=== PATIENT | male | born 1960 | race Caucasian/White ===

== ENCOUNTER 2016-10-27 10:10 | Inpatient (IN) ==
[2016-10-27] MEDS ORDERED: ZOFRAN ODT PO ONE (11:05)
--- NOTE | 2016-10-27 11:09 | PROVIDER DOCUMENTATION ---
HPI-General Adult - General Chief Complaint: Possible Sepsis-D Stated Complaint: SWELLING,WEAKNESS Time Seen by Provider: 10/27/16 10:53 Source: patient Allergies/Adverse Reactions: Patient Allergies Allergy/AdvReac Type Severity Reaction Status Date / Time No Known Allergies Allergy Verified 10/17/16 17:29 Home Medications: Home Medication List Medication Instructions Recorded Confirmed Last Taken Type Bupropion S.r. [Wellbutrin Sr] 150 mg PO BID #60 tablet 01/17/13 01/19/13 Unknown Rx Meloxicam [Mobic] 15 mg PO DAILY #60 tablet 01/17/13 01/19/13 Unknown Rx Amiodarone [Cordarone] 400 mg PO BID #0 tablet 01/22/13 Unknown Rx Amiodarone [Cordarone] 400 mg PO DAILY #0 tablet 01/22/13 Unknown Rx Amiodarone [Cordarone] 400 mg PO TID #0 tablet 01/22/13 Unknown Rx Apixaban [Eliquis] 5 mg PO BID #0 tablet 01/22/13 Unknown Rx Aspirin 325 mg PO DAILY #0 tablet 01/22/13 Unknown Rx Digoxin [Lanoxin] 250 microgm PO DAILY #0 tablet 01/22/13 Unknown Rx Metoprolol [Lopressor] 50 mg PO Q12H #0 tablet 01/22/13 Unknown Rx Oxycodone HCl/Acetaminophen 1 - 2 each PO Q4H PRN PRN #40 10/23/16 Unknown Rx [Percocet 5-325 mg Tablet] tablet - History of Present Illness -Gen Adult Nature of Presenting Problems: Pt is a 55 y/o WM c PMHx of MVP with apparently a bovine valve, HTN, HLD and depression, who was recently hospitalized for necrotic wound s/p debriedment and washout by Dr. Dietrich with wound vac in place, and placed on Ancef by Dr. Stack, just discharged on 10/23/16. He is here because the home health nurse discovered petechiae over the past 2 days, and patient has had increased nose bleeds. Denies easy bruising, but states he has been laying in bed with fatigue and nausea the past 2 days. Denies headaches or neck stiffness. Denies fevers, reports chills. Denies swelling in the joints. No prior history of coagulopathies to his knowledge. He has been getting Heparin flushes with the abx, he is no longer taking his Eliquis, and is on Aspirin 325 mg for DVT prophylaxis. Review of Systems - Adult - REVIEW OF SYSTEMS - ADULT Constitutional: reports: see HPI, chills, fatique. denies: fever Eyes: reports: no symptoms reported. denies: decreased vision, blurred vision, double vision, eye pain Ears, Nose, Mouth & Throat: reports: no symptoms reported. denies: ear pain, nose pain, throat pain Cardiovascular: reports: no symptoms reported. denies: chest pain, irregular heart rate, palpitations Respiratory: reports: no symptoms reported. denies: cough, shortness of breath , wheezing Gastrointestinal: reports: see HPI, nausea. denies: abdominal pain, diarrhea, vomiting Genitourinary: reports: no symptoms reported. denies: dysuria, discharge, frequency Musculoskeletal: reports: see HPI, muscle aches, other (selling). denies: bone pain, back pain Integumentary: reports: see HPI (petechia), rash Neurological: reports: no symptoms reported. denies: ataxia, dizziness/vertigo , headache/migraines Psychiatric: reports: no symptoms reported Endocrine: reports: no symptoms reported Hematologic/Lymphatic: reports: see HPI Allergic/Immunologic: reports: no symptoms reported All Other Systems: Reviewed and Negative Past History - Adult - PAST MEDICAL HISTORY-ADULT Review of Records: reports: Old Records Reviewed, Nursing Assessment Review, Medications Reviewed Major Childhood Illnesses: reports: denies history Cardiovascular: reports: HTN, heart valve problem Respiratory: reports: denies history Gastrointestinal: reports: denies history Genitourinary: reports: denies history Musculoskeletal: reports: denies history Neurological: reports: denies history Psychiatric: reports: depression Endocrine/Immune: reports: denies history Other Conditions: reports: denies history - PRIOR SURGERIES/PROCEDURES Surgical/Procedure History: reports: orthopedic (extremity) (Wound vac) - IMMUNIZATION STATUS Childhood Immunizations: See Nurse Assessment Flu Vaccine: See Nurse Assessment - FAMILY HISTORY Family History: reviewed, not pertinent - SOCIAL HISTORY Smoking: denies Substance Use: none/never Alcohol Use Frequency: never Living Situation: family Physical Exam-General - PHYSICAL EXAM-ADULT Initial Vital Signs Reviewed: Yes - CONSTITUTIONAL General Appearance: appears well, alert, no apparent distress - EYES Eyes: PERRL/EOMI, pink conjunctivae - HEAD, EARS, NOSE, MOUTH & THROAT HENMT: normocephalic/atraumatic, moist mucous membranes, normal ENT inspection - NECK Neck: non-tender, full range of motion, supple, normal inspection - RESPIRATORY Respiratory: chest non-tender, lungs clear, normal breath sounds, no pleuratic chest pain, no respiratory distress, no accessory muscle use. negative: respiratory distress, decreased breath sounds, accessory muscle use, crackles, rales, rhonchi, wheezing - CARDIOVASCULAR Cardiovascular: normal peripheral pulses, regular rate, rhythm, no edema, systolic murmur - GASTROINTESTINAL (ABDOMEN) Abdominal Exam: normal bowel sounds, non tender, soft, no organomegaly, no pulsatile mass. negative: abdominal bruit, abnormal bowel sounds, distended, guarding, rigid, rebound, tenderness - LYMPHATIC Lymphatic: no adenopathy - MUSCULOSKELETAL Back Exam: normal inspection Extremity: normal range of motion, non-tender, other (Wound Vac on the LLE on the medial aspect) Peripheral Pulses: dorsalis-pedis (R): 2+, dorsalis-pedis (L): 2+ - SKIN Integumentary: normal turgor, warm/dry, petechiae - NEUROLOGIC Neurologic: grossly normal, no motor/sensory deficits - PSYCHIATRIC Psych/Mental Status: normal mood/affect, normal thought content, normal thought process, oriented x 3 Progress - PLAN OF CARE/RESULTS Progress/Plan/Lab Results: Vital Signs - 8 hr 10/27/16 10:19 Temperature 97.9 F Pulse Rate 101 H Respiratory Rate 18 Blood Pressure 129/112 O2 Sat by Pulse Oximetry 100 Orders Category Date Time Status Cardiac Monitoring DIRECTED Care 10/27/16 10:42 Active IV Insertion ORDERED Care 10/27/16 10:42 Active Notify MD of + Sepsis Screen NOW Care 10/27/16 10:42 Active CHEST-2 VIEWS [RAD] Stat Exams 10/27/16 10:42 Ordered BLOOD CULTURE [BLDCUL] Stat Lab 10/27/16 10:42 Uncollected CBC WITH DIFF [HEME] Stat Lab 10/27/16 10:42 Uncollected CK PROFILE [SP CHEM] Stat Lab 10/27/16 10:42 Uncollected COMPREHENSIVE METABOLIC PANEL [CHEM] Stat Lab 10/27/16 10:42 Uncollected LACTATE, PLASMA [CHEM] Stat Lab 10/27/16 10:42 Uncollected PROTIME WITH INR [COAG] Stat Lab 10/27/16 10:42 Uncollected PTT [COAG] Stat Lab 10/27/16 10:42 Uncollected TROPONIN T Stat Lab 10/27/16 10:42 Uncollected Ondansetron Odt [Zofran Odt] Med 10/27/16 11:05 Discontinued 4 mg PO NOW ONE Oxygen Device Stat Oth 10/27/16 10:42 Active Discussed patient with Dr. Dinero, who came to bedside. Result Diagrams: 10/27/16 11:33 10/27/16 11:33 Departure - Departure Date of Disposition Decision: 10/27/16 Time of Disposition Decision: 12:28 DIAGNOSIS: Petechiae, MSSA (methicillin susceptible Staphylococcus aureus) Leukocytosis Qualifiers: Leukocytosis type: lymphocytosis Qualified Code(s): D72.820 - Lymphocytosis ( symptomatic) Disposition: ADMITTED INPATIENT 09 Certified Medical Emergency: Emergent Condition: Stable Referrals and Follow-Ups: Jon Harris MD [Primary Care Provider] - - Critical Care Note This patient required my direct & personal management of CC.: No Attestation - Physician/ NIRALI Attestation Patient care was provided by Advanced Practice Provider:: Yes Advanced Practice Provider:: Dana Pierre Advanced Practice Provider documentation review:: The Mid-level provider documentation, treatment plan and medical decision making was reviewed by the physician who agrees with all treatment and medical decision making by the MLP. The physician spent face to face time with patient:: Yes Advanced Practice Provider documentation review:: Supervising physician onsite and consulted in the evaluation and care of this patient. The physician did have a face to face encounter with the patient.
[2016-10-27 12:05] LABS: BASO% 0.1 % (0.0-0.8); EOS# 0.17 X1000 (0.0-0.7); HEMATOCRIT 43.9 % (42.0-52.0); HEMOGLOBIN 14.8 g/dL (14.0-18.0); LYMPH% 9.7 % (20.5-51.1); MANUAL DIFF NEEDED? NO; MCH 30.8 PG (27-31); MCHC 33.7 g/dL (33-37); MCV 91.3 FL (81-99); MONO# 1.17 X1000 (0.11-0.59); MONO% 7.1 % (1.7-9.3); MPV 9.4 FL (7.4-10.4); NEUT% 82.1 % (42.2-75.2); PLT 325 X1000 (130-400); RBC 4.81 XMIL (4.7-6.1)
[2016-10-27 12:06] LABS: INR 1.04; PTT 32.1 Seconds (22.0-36.0)
[2016-10-27 12:12] LABS: AGAP 12; ALBUMIN 3.5 g/dL (3.5-5.0); ALKALINE PHOSPHATASE 70 U/L (32-122); BUN 17 mg/dL (8-22); CHLORIDE 98 mmol/L (98-107); CK PROFILE 55 U/L (24-204); COSMO 274; GOT 24 U/L (10-34); GPT 16 U/L (10-44); POTASSIUM 4.5 mmol/L (3.5-5.1); SODIUM 136 mmol/L (136-145); TCO2 26 mmol/L (25-35); TOTAL BILIRUBIN 0.59 mg/dL (0.20-1.00); TOTAL PROTEIN 6.4 g/dL (6.3-8.3)
--- NOTE | 2016-10-27 12:53 | Diag Imaging Result Doc PS360 ---
EXAM: CHEST-2 VIEWS INDICATION: SHORTNESS OF BREATH TECHNIQUE: 2 views COMPARISON: 10/19/2016 FINDINGS: There has been interval placement of a left PICC line. The tip projects over the lower SVC in the expected position. The central vasculature is still slightly prominent but it is improved as compared to the previous study. There is perhaps minimal central interstitial edema that has also improved. No new consolidations are appreciated. Cardiac silhouette is stable. IMPRESSION: Suggestion of very mild central interstitial edema and pulmonary venous congestion that has improved during the interval. Electronically signed by Mick Orosco 10/27/2016 12:51 PM
[2016-10-27] MEDS ORDERED: DUONEB (A & A) INH PRN (14:20)
--- NOTE | 2016-10-27 14:41 | HISTORY AND PHYSICAL ---
HISTORY OF PRESENT ILLNESS: This is a 55-year-old who recently had a 4-krishnan accident. He hit a post with his right leg. He presented to the wound clinic following injury to right ankle proximally. This was about 10/12/2016. A piece a fence post fell onto his leg causing the wound. States that the leg did swell up and caused him pain at the time of initial injury. States that after a couple of days, there started to be redness and swelling and he presented to the hospital. His sees CYNTHIA Dorsey. PAST MEDICAL HISTORY: Annuloplasty ring for mitral valve repair [address] Alvarez. PAST MEDICAL HISTORY: 1. Mitral valve prolapse and apparently had mitral valve stenosis, although it may have been prolapse that they did this annuloplasty. 2. Hypertension. 3. Gout. 4. COPD. SOCIAL HISTORY: The patient lives with his . He is a heavy smoker. Smokes about 2 or 3 packs a day. FAMILY HISTORY: Noncontributory. ALLERGIES: No known drug allergies. MEDICATION: He is on [place], clindamycin, Bactroban, albuterol, Ativan and deliver Dulera. REVIEW OF SYSTEMS: General: No weight gain or loss. No fever or chills until the last 24 hours and that is really what he presented with was fever and chills. General malaise. Some nausea. He states he has had some lower abdominal discomfort, but no other no other real focus of pain. He wonders that the nausea is not from his pain medication. He was on oxycodone I believe. GI/: No gross hematuria or dysuria. Musculoskeletal/Neurologic: No focal complaints. Endocrinologic/hematologic: No significant history. Skin: The other concern once petechiae and he states that this is better. He is on antibiotics with a PICC line in the left arm under Dr. Stack' direction was getting cefazolin for methicillin sensitive Staphylococcus aureus. He had finished his antibiotics a couple of days ago. PHYSICAL EXAMINATION: VITAL SIGNS: Temperature 97.9 degrees, pulse 100, respirations 24 and blood pressure 154/91. LUNGS: Clear in all lung beach. CARDIOVASCULAR: Regular rhythm and rate without murmur or S3. ABDOMEN: Soft. SKIN: Warm and dry. HEIGHT: 5 feet 11 inches. CVP: Less than 6 cm. LUNGS: Clear in all lung beach. CARDIOVASCULAR: Regular rhythm and rate without murmur or S3. ABDOMEN: Soft. SKIN: Is warm and dry. EXTREMITIES: Right leg has a wound VAC on the lower medial anterior leg and surrounding area looks good, dry and clean and really no erythema. He did have symmetrical petechiae which is sparse, but just on the lower leg. He was getting some heparin flush by his report. LABORATORY/IMAGING: White count 16,430, hematocrit 43, platelet count 325,000. Sodium 136, potassium 4.5, chloride 98, bicarb 26, BUN 17, creatinine 1. Liver functions unremarkable. Albumin 3.5, PT was 11. PTT was 32. Chest x-ray, suggestion of very mild central interstitial edema, pulmonary venous congestion improved during this interval. They were comparing it to 10/19/2016. ASSESSMENT AND PLAN: 1. Soft tissue injury to his lower leg, has a wound VAC in place. Dr. Dietrich is scheduled to follow him up anyway, so we will get him involved. Look at it tomorrow. From what I understand, the area looks better. He has a PICC line in and was getting cefazolin, I think probably a g 3 times a day under Dr. Stack' direction for methicillin sensitive Staphylococcus aureus. He reports a fever and chills. We will obtain some cultures. I think it might be rosario to get an echocardiogram since he has a tissue mitral valve and make sure there are no vegetations. 2. He has been told he has chronic obstructive pulmonary disease. He is a long history smoker. Give him a nicotine patch. We will keep him on his inhalers that he takes at home. 3. Hypertension. 4. History of gout. 5. He had complaints of nausea. I suspect this is related to his pain medicine. 6. Petechiae. I wonder if that is not related to his heparin flush. Platelet counts look good. His ProTime and PTT look good and it sounds like these are resolving so will watch those clinically. cc: Vahid Romero MD
[2016-10-27] MEDS ORDERED: NS 1,000 ML IV SCH (15:58)
[2016-10-27] MEDS ORDERED: TYLENOL PO PRN (15:58)
[2016-10-27] MEDS: NICODERM PATCH TD SCH (16:00)
[2016-10-27] MEDS: LOPRESSOR PO SCH (20:29)
[2016-10-27] MEDS: PERCOCET-5 PO PRN ×2 (20:29→21:13)
[2016-10-27] MEDS: ZOFRAN IV PRN (20:29)
[2016-10-27] MEDS: WELLBUTRIN SR PO SCH (20:29)
[2016-10-28] MEDS: PERCOCET-5 PO PRN ×5 (02:41→20:29)
[2016-10-28 05:58] LABS: MANUAL DIFF NEEDED? NO
[2016-10-28 06:24] LABS: INR 1.04; PTT 31.9 Seconds (22.0-36.0)
[2016-10-28 06:26] LABS: BASO% 0.2 % (0.0-0.8); EOS# 0.47 X1000 (0.0-0.7); EOS% 2.8 % (0.0-10.0); HEMOGLOBIN 13.8 g/dL (14.0-18.0); IMM GRAN# 0.06 X1000 (0.0-0.04); IMM GRAN% 0.4 % (0.0-0.5); LYMPH% 13.2 % (20.5-51.1); MCH 30.3 PG (27-31); MCHC 33.7 g/dL (33-37); MCV 89.9 FL (81-99); MONO# 1.32 X1000 (0.11-0.59); MONO% 7.9 % (1.7-9.3); MPV 9.7 FL (7.4-10.4); NEUT% 75.5 % (42.2-75.2); PLT 340 X1000 (130-400); RBC 4.56 XMIL (4.7-6.1)
--- NOTE | 2016-10-28 06:28 | EKG Report ---
Test Performed on : 10/28/2016 05:23:05 AM Test Reason : chest pain Blood Pressure : / mmHG Vent. Rate : 077 BPM Atrial Rate : 077 BPM P-R Int : 168 ms QRS Dur : 130 ms QT Int : 422 ms P-R-T Axes : 073 -21 028 degrees QTc Int : 477 ms Normal sinus rhythm. Right bundle branch block Abnormal ECG When compared with ECG of 19-OCT-2016 10:35, T wave inversion now evident in V2 ST less elevated in lateral leads V4-V5-V6 Clinical Correlation advised Confirmed by Alfred Fisher DO ([id number]) on 10/31/2016 5:01:59 PM
[2016-10-28 06:48] LABS: AGAP 11; ALBUMIN 2.9 g/dL (3.5-5.0); ALKALINE PHOSPHATASE 62 U/L (32-122); BUN 23 mg/dL (8-22); CALCIUM 8.7 mg/dL (8.8-10.2); CHLORIDE 100 mmol/L (98-107); COSMO 279; GOT 38 U/L (10-34); GPT 25 U/L (10-44); POTASSIUM 4.5 mmol/L (3.5-5.1); SODIUM 138 mmol/L (136-145); TCO2 27 mmol/L (25-35); TOTAL BILIRUBIN 0.53 mg/dL (0.20-1.00); TOTAL PROTEIN 5.6 g/dL (6.3-8.3)
--- NOTE | 2016-10-28 07:46 | PROGRESS NOTE ---
DATE: 10/28/2016 PRESENT ILLNESS: The patient was sent home on Ancef for an oxacillin sensitive Staphylococcus aureus, severely infected right ankle. He was readmitted to the hospital because he developed a generalized red petechial pustular rash. MEDICATIONS: Ancef has been discontinued. PHYSICAL EXAMINATION: Vital Signs: Temperature is 97.8 degrees, pulse 78, respirations 16, blood pressure 113/68. General: This is an obese but otherwise healthy-appearing, middle-aged male who is in no acute distress. Lungs: Clear to auscultation. Cardiovascular: Regular heart rate. Abdomen: Soft and nontender. Bones, Joints, and Muscles: The right ankle is less swollen. It does have a VAC on it. Integument: The patient has a petechial pustular rash. LAB AND X-RAY: CBC shows a white count of 16,620, hemoglobin 13.8, and platelet count 340,000. Creatinine is 1.1. GFR is greater than 60. Liver function studies are normal. Blood cultures have been drawn and are pending. Chest x-ray shows pulmonary edema. There is no new x-ray. ASSESSMENT AND PLAN: I think the patient is having an adverse reaction to cefazolin and I plan to switch him to clindamycin to which his organism was susceptible. COMORBIDITIES: He is a cigarette smoker. He is also recovering addict and alcoholic. cc: Matty Stack MD
[2016-10-28] MEDS: ASPIRIN PO SCH (09:24)
[2016-10-28] MEDS: CLINDAMYCIN 600 MG/NS 600 MG/50 ML IVPB IV SCH ×2 (09:24→17:16)
[2016-10-28] MEDS: CORDARONE PO SCH ×2 (09:24→09:28)
[2016-10-28] MEDS: MOBIC PO SCH ×2 (09:25→09:28)
[2016-10-28] MEDS: LANOXIN PO SCH ×2 (09:25→09:28)
[2016-10-28] MEDS: WELLBUTRIN SR PO SCH ×2 (09:25→20:29)
[2016-10-28] MEDS: LOPRESSOR PO SCH (09:25)
[2016-10-28] MEDS: NICODERM PATCH TD SCH (09:27)
--- NOTE | 2016-10-28 13:33 | PROGRESS NOTE ---
DATE: 10/28/2016 SUBJECTIVE: Mr. Chopra is feeling better. He says he is feeling better. Remains afebrile. OBJECTIVE: Vital signs: Temp 97.8 degrees, pulse 85, respirations 18, blood pressure 126/86. Lungs: Clear in all lung beach. Cardiovascular: Regular rhythm and rate without murmur or S3. Abdomen: Soft. Skin: Warm and dry. LAB: I reviewed his lab. White count elevated at 16,000. Hematocrit stable at 41. Normal platelets. ASSESSMENT AND PLAN: The patient has been on Aricept for oxacillin-sensitive Staphylococcus aureus soft tissue infection, cellulitis, severely infected right ankle. He has developed generalized petechial, pustular rash which is resolving and Ancef has been discontinued. Dr. Stack feels he may have heart disease an adverse reaction to cefazolin and switched him to clindamycin to which his organism is susceptible. He is tolerating fluids. Feels a little better. Clindamycin, he is getting 600 mg IV q.8. Pain is well managed. He has a wound VAC to his right medial leg. I am going to check noninvasive studies. If that looks good, possibility will let him go home tomorrow. Question is how long we should continue clindamycin. We will discuss with Dr. Stack. cc: Vahid Romero MD
[2016-10-28] MEDS: ZOFRAN IV PRN (16:14)
[2016-10-29] MEDS: PERCOCET-5 PO PRN ×3 (01:29→10:09)
[2016-10-29] MEDS: CLINDAMYCIN 600 MG/NS 600 MG/50 ML IVPB IV SCH ×2 (01:29→08:36)
[2016-10-29] MEDS ORDERED: AYR NASAL SPRAY NAS PRN (01:34)
[2016-10-29] MEDS ORDERED: DIFLUCAN PO ONE (07:55)
--- NOTE | 2016-10-29 08:17 | PROGRESS NOTE ---
DATE: 10/29/2016 SUBJECTIVE DATA: Mr. Chopra is lying in bed, in no acute distress. He states overall he is feeling well. He is not having any significant pain. He states that he is ready to try and get back home. OBJECTIVE DATA: Right Lower Extremity Examination: The wound VAC is still attached. It is secure with good suction. The erythema to the foot has greatly reduced. He does still have a petechiae type rash that looks like it has made some improvement as well. He has good sensation to the leg and foot. He has a 2+ pedal pulse. ASSESSMENT: Soft-tissue injury to his right lower leg. PLAN: We will continue his wound VAC. We will have it changed today. Dr. Stack is managing his antibiotics, which have been adjusted since he developed the rash. He will continue IV antibiotic therapy at home per Dr. Stack. From our standpoint, he is ready for discharge whenever he is medically ready. We will have him follow up with us in clinic this Friday. Dictated by CYNTHIA Gillette for Porfirio Dietrich MD cc: CYNTHIA Gillette MD MTDD
--- NOTE | 2016-10-29 08:34 | PROGRESS NOTE ---
DATE: 10/29/2016 PRESENT ILLNESS: The patient originally was sent home on Ancef for an oxacillin sensitive Staph aureus infected right ankle. He was readmitted to the hospital because of a rash and fever. In hind sight now, I think the rash and fever were due to an adverse reaction to cefazolin. The patient also now appears to have oral candidiasis. MEDICATIONS: The patient yesterday was changed from Ancef to clindamycin which he appears to be tolerating well. PHYSICAL EXAMINATION: Vital Signs: Temperature is 97.9 degrees, pulse 83, respirations 16, blood pressure 123/78. Ears/nose/throat: The patient has erythematous oral mucosa. There are no white patches at this time. In each corner of his lip,s he appears to have irritation also. Lungs: Clear to auscultation. Cardiovascular: Heart rate is regular. Abdomen: Soft and nontender. Extremities: The left arm has a PICC in place. The site is not erythematous or swollen. The right ankle is less swollen; vac is in place. LAB AND X-RAY: There is no new lab or x-ray. ASSESSMENT AND PLAN: The patient has Staphylococcus aureus infected right ankle. He had an adverse reaction to Ancef. The plan now is to send him home on clindamycin 600 mg intravenous every 8 hours for 4 more weeks to complete a 6-week treatment course. Also, I have electronically sent a prescription for fluconazole 200 mg daily to the patient's pharmacy of choice, which is [facility]. I plan to see the patient in the office at 2 weeks and then again at 4 weeks when we will stop his antibiotic and remove his PICC. COMORBIDITIES: The patient's comorbidities include his main comorbidity that he is smokes cigarettes. He is a recovering addict and alcoholic; patient assures me that he is not doing drugs and has not done them in awhile, and he will not be doing them in the future. cc: Matty Stack MD
[2016-10-29] MEDS: WELLBUTRIN SR PO SCH (08:36)
[2016-10-29] MEDS: ASPIRIN PO SCH (08:36)
--- NOTE | 2016-10-29 11:05 | ECHO REPORT ---
ORDER DATE: 10/28/2016 ECHOCARDIOGRAPHIC MEASUREMENTS: 1. Interventricular septum 1.1, left ventricular posterior wall 1.1, diastolic diameter 4.8, left atrium 4.5, aorta 3.7. Patient status post annuloplasty, mitral valve ring placement in the past. 2. Aortic valve leaflets are trileaflet. Pulmonic valve was normal. There is trace pulmonary regurgitation. 3. Tricuspid valve is normal. 4. Mitral annular angioplasty ring noted. 5. There is mild left atrial enlargement. 6. Normal left ventricular cavity size. Estimated ejection fraction of 65%. There is mild tricuspid regurgitation. Peak velocity across the tricuspid valve was 3 m/sec. Pulmonary systolic pressure 46 mmHg. Peak velocity across the aortic valve less than 2 m/sec by Doppler studies. There is no aortic stenosis or regurgitation. 7. There is mild eccentric mitral regurgitation. 8. There is no pericardial effusion or obvious intracardiac mass or thrombus seen. cc: MD Evita [place] CRNP
[2016-10-29 11:24] VITALS: BP 122/77
--- NOTE | 2016-10-29 18:25 | DISCHARGE SUMMARY ---
ADMISSION DATE: 10/27/2016 DISCHARGE DATE: 10/29/2016 CONSULTATIONS: 1. Dr. Dietrich with Orthopedics. 2. Dr. Matty Stack with Infectious Disease. PERTINENT PROCEDURES: Echocardiogram showed a mitral annular angioplasty ring noted and EF of 65%. DISCHARGE DIAGNOSES: 1. Oxacillin sensitive Staphylococcus aureus infection right ankle status post a previous right ankle and leg irrigation and debridement, and wound VAC application by Dr. Dietrich on his previous admission on 10/18/2016. Initially on Ancef. Antibiotic has been changed to clindamycin secondary to having an adverse reaction to Ancef. He will receive clindamycin 600 mg IV every 8 hours for 4 more weeks to complete a 6-week treatment course as well as fluconazole 200 mg daily and will follow up with Dr. Stack in 2 weeks and again in 4 weeks. We were able to stop his antibiotic and remove his PICC line. He will follow up with Dr. Dietrich in the clinic on Friday. Continue Home Health for his wound VAC care. 2. Mitral valve prolapse where he had an annuloplasty ring performed [place] [address] Alvarez at [facility]. 3. Hypertension, stable. 4. Gout, stable. 5. Chronic obstructive pulmonary disease without exacerbation. 6. Tobacco abuse. Patient continues to smoke about 2-3 packs per day. He has been educated on smoking cessation daily. HOSPITAL COURSE: Mr. Chopra is a 55-year-old, male who had recently been admitted to the hospital by Dr. Dietrich for a right ankle wound where a fence post had fallen on his leg causing a wound. They noticed a lot of eschar and erythema in the wound clinic as well as purulent drainage. They did debride a layer of the eschar and necrotic tissue with scalpel and forceps, and as soon as they debriding, copious purulent drainage began to pour out. They did cultures and directly admitted the patient on 10/17/2016. He then underwent on 10/18/[address] Dietrich, a right ankle and leg irrigation and debridement, with a right ankle application of wound VAC. Dr. Stack was consulted. He was found to have oxacillin sensitive Staphylococcus aureus infection for which he was started on Ancef and was discharged home with home health and IV antibiotics, and wound VAC. The patient presented back to the ED after he noticed redness and swelling again along with a petechiae type rash. His Ancef was discontinued and placed on clindamycin. His wound VAC was changed on 10/29, the day of his discharge. Ortho has cleared him for discharge. Dr. Stack is sending him home on IV clindamycin every 8 hours for 4 more weeks to complete a 6 week course of treatment as well as fluconazole 200 mg daily. He plans to see the patient back at his office in 2 weeks and then again at 4 weeks, and will stop his antibiotic and remove his PICC line at that time. He will follow up with Dr. Dietrich in his clinic on Friday morning. The patient is being discharged home with home health for IV antibiotics and wound VAC care. VITAL SIGNS AT TIME OF DISCHARGE: Temperature is 97.6 degrees, heart rate 76, respirations 18, blood pressure 122/77, O2 is 97% on room air. DISCHARGE DIET: Healthy heart. DISCHARGE MEDICATIONS: As per Dr. Begum and Matty Stack: 1. Aspirin 325 mg p.o. daily. 2. Wellbutrin 150 mg p.o. b.i.d. 3. Fluconazole 200 mg p.o. daily for 10 days. 4. Percocet 5/325, 1-2 each p.o. q. 4 hours p.r.n. 5. [place] nasal spray 1-2 mL nasal spray p.r.n. 6. Clindamycin 600 mg IV every 8 hours for 4 more weeks to complete a 6-week course. FOLLOWUP: Mr. Chopra is being discharged back home with home health to continue with IV antibiotics and wound VAC care. He can return to the ED for any worsening of symptoms. I have personally performed a face to face diagnostic evaluation on this patient , also I reviewed this patient lab work and, images and vital signs, this patient is good to be discharge, He will go with the wound vac, antibiotics , he is not in distress, stable, Dr Roosevelt Wiggins Dictated by CYNTHIA Perez for Roosevelt Begum MD cc: MD Christiana Degroot
--- NOTE | 2016-11-01 16:10 | Extremity Venous Study ---
PROCEDURE NAME: Venous U/S Bilateral Legs - 10/27/2016 BILATERAL LOWER EXTREMITY VENOUS DUPLEX STUDY: REFERRING PHYSICIAN: Vahid Romero MD READING PHYSICIAN: Gino Owen MD RETAIL FIELD SUPERVISOR: Halima. INDICATION: Pain and swelling in the legs. Of note, the exam is somewhat limited in the right leg due to a wound VAC placed in the calf. FINDINGS: The right common femoral, superficial femoral, deep femoral, greater saphenous, popliteal, posterior tibial, and peroneal veins were imaged first. They are compressible, patent and without thrombus. The left common femoral, deep femoral, superficial femoral, greater saphenous, popliteal, posterior tibial, and peroneal veins were then imaged. Next they are compressible, patent without thrombus. There are a few enlarged lymph nodes in the right groin and there is reflux noted in the right greater saphenous vein for 0.8 seconds, in the right common femoral vein for 1.6 seconds. INTERPRETATION: No evidence of deep or superficial venous thrombosis in either lower extremity. There is reflux disease in the right common femoral, greater saphenous veins and there are some enlarged lymph nodes in the right groin. cc: MD Evita Oneal CRNP
== END 2016-10-29 14:00 | disposition home health service (06) ==
LOC: ED 10:10 → 4N 15:19 → SUATTDRO 15:19
PROVIDERS: ATTEND Internal Medicine